=== PATIENT | female | born 1990 | race Two or more races ===

== ENCOUNTER 2018-01-04 23:20 | Emergency (ER) | payer MEDICAID, OTHER ==
[~2018-01-04] VITALS: Ht 167.6 cm; Wt 79.4 kg
[2018-01-05 00:37] VITALS: BP 114/52
[2018-01-05] MEDS ORDERED: DEXAMETHASONE SOD PHOS 10MG/1ML VIAL INJ IM ONE (01:15)
[2018-01-05] MEDS ORDERED: cefTRIAXone SOD 1,000 MG VL IM ONE (01:15)
== END 2018-01-05 01:40 | disposition home or self-care (01) ==
LOC: ER 23:20
DX: J02.9 Acute pharyngitis, unspecified (principal); H66.93 Otitis media, unspecified, bilateral; Z88.8 Allergy status to other drugs, medicaments and biological substances
CPT/HCPCS: 96372; 99284; J0696; J1100

== ENCOUNTER 2018-03-01 10:23 | Inpatient (IN) | payer MEDICAID ==
[~2018-03-01] VITALS: Ht 165.1 cm; Wt 87.9 kg
[2018-03-01] MEDS ORDERED: SODIUM CHLORIDE 0.9% 1,000 ML IVB ONE (11:05)
[2018-03-01] MEDS ORDERED: KETOROLAC TROMETH 30 MG/ML 1ML VIAL IV ONE (11:15)
[2018-03-01] MEDS ORDERED: ONDANSETRON HCL 4 MG/2 ML VIAL IV ONE (11:15)
[2018-03-01] MEDS ORDERED: HYDROmorphone HCL 2 MG/ML VL IV ONE (11:15)
[2018-03-01 11:26] LABS: Basophils # (auto) 0 uL; Basophils % (auto) 0.4 % (0.0-2.0); Eosinophils # (auto) 0.1 uL; Eosinophils % (auto) 0.8 % (0.0-7.0); Hematocrit 46.8 % (41.0-53.0); Hemoglobin 15.8 g/dL (13.5-17.5); Lymphocytes # (auto) 2.6 uL; Lymphocytes % (auto) 22.2 % (10.0-50.0); Mean Corpuscular Hemoglobin 29.5 pg (28.0-32.0); Mean Corpuscular Hgb Conc. 33.9 g/dL (32.0-36.0); Mean Corpuscular Volume 87.1 fL (80.0-100.0); Monocytes # (auto) 0.7 uL; Monocytes % (auto) 5.9 % (0.0-12.0); Neutrophils # (auto) 8.4 uL; Neutrophils % (auto) 70.7 % (37.0-80.0); Nucleated Red Blood Cells % 0.1 %; Platelet Count (auto) 317 10^3/uL (140-450); Red Blood Cells 5.37 10^6/uL (4.5-5.90); Red Cell Distribution Width 13.3 % (11.8-14.3); White Blood Cell 11.8 10^3/uL (4.4-10.8)
[2018-03-01 11:45] LABS: Albumin 4.3 g/dL (3.4-5.0); Calcium 9.5 mg/dL (8.5-10.1); Potassium 3.9 mmol/L (3.5-5.1)
[2018-03-01 11:48] LABS: BUN/Creatinine Ratio 10.5; Bilirubin, Total 0.6 mg/dL (0.2-1.0); Total Protein 8.2 g/dL (6.4-8.2)
[2018-03-01] MEDS ORDERED: NITROGLYCERIN 0.4 MG SL TAB SL PRN (13:30)
[2018-03-01] MEDS ORDERED: cefTRIAXone 1GM/50ML D5W 50 ML IV ONE (13:30)
[2018-03-01] MEDS ORDERED: ONDANSETRON HCL 4 MG/2 ML VIAL IV PRN (13:30)
[2018-03-01] MEDS ORDERED: TEMAZEPAM 15 MG CAP PO PRN (13:30)
[2018-03-01] MEDS ORDERED: ACETAMINOPHEN 500 MG TAB PO PRN (13:30)
[2018-03-01] MEDS ORDERED: DEXTROSE (50%) 50ML SYRG IV PRN (13:30)
[2018-03-01] MEDS ORDERED: LORazepam 0.5 MG TAB PO PRN (13:30)
[2018-03-01] MEDS ORDERED: traMADol HCL 50 MG TAB PO PRN (13:30)
[2018-03-01] MEDS: SODIUM CHLORIDE 0.9% 1,000 ML IV SCH ×2 (13:59→23:30)
[2018-03-01 16:00] VITALS: BP 115/74
[2018-03-01] MEDS: ACCU-CHEK COMFORT CURVE STRIP VI SCH ×2 (17:41→23:49)
[2018-03-01 20:00] VITALS: BP 118/72
[2018-03-01] MEDS: KETOROLAC TROMETH 30 MG/ML 1ML VIAL IV PRN (23:48)
[2018-03-02 05:00] VITALS: BP 119/67
[2018-03-02] MEDS: ACCU-CHEK COMFORT CURVE STRIP VI SCH (05:38)
[2018-03-02 08:21] LABS: Urine Bacteria NONE SEEN /hpf (None Seen); Urine Blood Negative /uL (Negative); Urine Mucus FEW (None Seen); Urine Specific Gravity 1.017 (1.001-1.035); Urine WBC 1 /hpf (0 - 3)
[2018-03-02 09:00] VITALS: BP 127/69
[2018-03-02] MEDS: cefTRIAXone 1GM/50ML D5W 50 ML IV SCH (09:30)
[2018-03-02] MEDS: PANTOPRAZOLE 40 MG TAB PO SCH (09:30)
[2018-03-02] MEDS: SODIUM CHLORIDE 0.9% 1,000 ML IV SCH ×2 (09:30→20:31)
[2018-03-02 13:00] VITALS: BP 119/78
[2018-03-02 17:11] VITALS: BP 124/64
[2018-03-02 22:00] VITALS: BP 125/79
[2018-03-03 04:30] VITALS: BP 135/86
[2018-03-03] MEDS: KETOROLAC TROMETH 30 MG/ML 1ML VIAL IV PRN ×2 (04:38→23:07)
[2018-03-03] MEDS: SODIUM CHLORIDE 0.9% 1,000 ML IV SCH ×2 (04:39→15:21)
[2018-03-03 06:06] LABS: Basophils # (auto) 0 uL; Basophils % (auto) 0.6 % (0.0-2.0); Eosinophils # (auto) 0.2 uL; Eosinophils % (auto) 2.1 % (0.0-7.0); Hematocrit 42.5 % (41.0-53.0); Hemoglobin 14.5 g/dL (13.5-17.5); Lymphocytes % (auto) 52.6 % (10.0-50.0); Mean Corpuscular Hemoglobin 30.1 pg (28.0-32.0); Mean Corpuscular Volume 88.4 fL (80.0-100.0); Monocytes # (auto) 0.5 uL; Monocytes % (auto) 6.2 % (0.0-12.0); Neutrophils % (auto) 38.5 % (37.0-80.0); Nucleated Red Blood Cells % 0.1 %; Platelet Count (auto) 264 10^3/uL (140-450); Red Blood Cells 4.81 10^6/uL (4.5-5.90); Red Cell Distribution Width 13.1 % (11.8-14.3); White Blood Cell 7.7 10^3/uL (4.4-10.8)
[2018-03-03 06:33] LABS: Potassium 3.7 mmol/L (3.5-5.1)
[2018-03-03 06:41] LABS: BUN/Creatinine Ratio 13.5; Calcium 8.6 mg/dL (8.5-10.1)
[2018-03-03 08:01] VITALS: BP 132/85
[2018-03-03] MEDS: PANTOPRAZOLE 40 MG TAB PO SCH (09:05)
[2018-03-03] MEDS: cefTRIAXone 1GM/50ML D5W 50 ML IV SCH (09:05)
[2018-03-03 13:33] VITALS: BP 126/89
[2018-03-03 16:16] VITALS: BP 119/69
[2018-03-03] MEDS ORDERED: DEXAMETHASONE SOD PHOS 4 MG/1ML SDV INJ IV ONE (19:00)
[2018-03-03] MEDS ORDERED: diphenhdrAMINE HCL 25 MG CAP PO ONE (19:00)
[2018-03-03 22:00] VITALS: BP 119/84
[2018-03-04 05:00] VITALS: BP 121/75
[2018-03-04] MEDS: SODIUM CHLORIDE 0.9% 1,000 ML IV SCH ×2 (05:59→11:30)
[2018-03-04 09:00] VITALS: BP 126/80
[2018-03-04] MEDS: PANTOPRAZOLE 40 MG TAB PO SCH (10:35)
[2018-03-04] MEDS: cefTRIAXone 1GM/50ML D5W 50 ML IV SCH (10:35)
[2018-03-04 11:57] VITALS: BP 126/80
== END 2018-03-04 18:59 | disposition home or self-care (01) | DRG 463 ==
LOC: EDSEX 10:24 → ER 10:24 → TELE 10:25 → TELE-WESTW 15:03
PROVIDERS: ADMIT Internal Medicine; ATTEND Internal Medicine
DX: N13.6 Pyonephrosis (principal); E66.3 Overweight; I10 Essential (primary) hypertension; R73.9 Hyperglycemia, unspecified; J45.909 Unspecified asthma, uncomplicated; Z83.3 Family history of diabetes mellitus; Z87.442 Personal history of urinary calculi; Z90.49 Acquired absence of other specified parts of digestive tract; Z88.8 Allergy status to other drugs, medicaments and biological substances; Z91.040 Latex allergy status; Z84.89 Family history of other specified conditions; Z68.32 Body mass index [BMI] 32.0-32.9, adult
CPT/HCPCS: 36415; 71045; 74176; 80048; 80053; 81001; 82962; 83036; 83690; 85025; 87086; 94761; 96361; 96365; 96375; 96376; G0378; J0696; J1885; J2405

== ENCOUNTER 2018-03-08 17:40 | Emergency (ER) | payer MEDICAID ==
[~2018-03-08] VITALS: Ht 165.1 cm; Wt 79.4 kg
[2018-03-08 18:17] LABS: Urine Bacteria NONE SEEN /hpf (None Seen); Urine Blood Negative /uL (Negative); Urine Specific Gravity 1.001 (1.001-1.035); Urine WBC <1 /hpf (0 - 3)
[2018-03-08 18:36] LABS: Basophils # (auto) 0.1 uL; Basophils % (auto) 1.4 % (0.0-2.0); Eosinophils # (auto) 0.2 uL; Eosinophils % (auto) 3.2 % (0.0-7.0); Hemoglobin 16.3 g/dL (13.5-17.5); Lymphocytes # (auto) 2.9 uL; Lymphocytes % (auto) 42.9 % (10.0-50.0); Mean Corpuscular Hemoglobin 30.1 pg (28.0-32.0); Mean Corpuscular Hgb Conc. 33.9 g/dL (32.0-36.0); Mean Corpuscular Volume 88.6 fL (80.0-100.0); Monocytes # (auto) 0.7 uL; Monocytes % (auto) 9.9 % (0.0-12.0); Neutrophils # (auto) 2.9 uL; Neutrophils % (auto) 42.6 % (37.0-80.0); Platelet Count (auto) 335 10^3/uL (140-450); Red Blood Cells 5.42 10^6/uL (4.5-5.90); Red Cell Distribution Width 13.2 % (11.8-14.3); White Blood Cell 6.7 10^3/uL (4.4-10.8)
[2018-03-08 18:55] LABS: Albumin 4.3 g/dL (3.4-5.0); BUN/Creatinine Ratio 15.6; Calcium 9.8 mg/dL (8.5-10.1); Potassium 3.9 mmol/L (3.5-5.1)
[2018-03-08 18:57] LABS: Bilirubin, Total 0.2 mg/dL (0.2-1.0); Total Protein 8.3 g/dL (6.4-8.2)
[2018-03-08] MEDS ORDERED: SODIUM CHLORIDE 0.9% 1,000 ML IV ONE (19:57)
[2018-03-08 23:36] LABS: Urine Bacteria NONE SEEN /hpf (None Seen); Urine Blood Negative /uL (Negative); Urine Specific Gravity 1.009 (1.001-1.035); Urine WBC <1 /hpf (0 - 3)
[2018-03-09 00:02] LABS: Alcohol, Urine < 3.0 mg/dL (0-5); Amphetamine Screen, Urine NEGATIVE (NEGATIVE); Barbiturate Scree,Urine NEGATIVE (NEGATIVE); Benzodiazephine Screen, Urine NEGATIVE (NEGATIVE); Cannabinoid Screen, Urine NEGATIVE (NEGATIVE); Cocaine Screen, Urine NEGATIVE (NEGATIVE); Opiate Scree,Urine NEGATIVE (NEGATIVE); Phencyclidine Screen, Urine NEGATIVE (NEGATIVE)
[2018-03-09] MEDS ORDERED: HYDROmorphone HCL 2 MG/ML VL IV ONE (00:15)
[2018-03-09] MEDS ORDERED: ONDANSETRON HCL 4 MG/2 ML VIAL IV ONE (00:15)
[2018-03-09 02:28] VITALS: BP 129/77
== END 2018-03-09 03:07 | disposition home or self-care (01) ==
LOC: ER 17:51
DX: N13.9 Obstructive and reflux uropathy, unspecified (principal); N39.0 Urinary tract infection, site not specified; Z88.5 Allergy status to narcotic agent; Z88.8 Allergy status to other drugs, medicaments and biological substances; Z91.040 Latex allergy status; Z91.018 Allergy to other foods; Z90.49 Acquired absence of other specified parts of digestive tract; Z87.442 Personal history of urinary calculi
CPT/HCPCS: 36415; 74176; 80053; 80307; 81001; 83690; 85025; 96374; 96375; 99285; J1170; J2405

== ENCOUNTER 2018-06-08 20:46 | Emergency (ER) | payer MEDICAID ==
[2018-06-08 21:56] VITALS: BP 140/75
[2018-06-08 23:20] LABS: Basophils # (auto) 0 uL; Basophils % (auto) 0.2 % (0.0-2.0); Eosinophils # (auto) 0.3 uL; Eosinophils % (auto) 3.3 % (0.0-7.0); Hematocrit 46.3 % (41.0-53.0); Hemoglobin 16.1 g/dL (13.5-17.5); Lymphocytes # (auto) 4.2 uL; Lymphocytes % (auto) 53.8 % (10.0-50.0); Mean Corpuscular Hemoglobin 30.3 pg (28.0-32.0); Mean Corpuscular Hgb Conc. 34.9 g/dL (32.0-36.0); Mean Corpuscular Volume 86.8 fL (80.0-100.0); Monocytes # (auto) 0.6 uL; Monocytes % (auto) 7.7 % (0.0-12.0); Neutrophils # (auto) 2.8 uL; Nucleated Red Blood Cells % 0.1 %; Platelet Count (auto) 286 10^3/uL (140-450); Red Blood Cells 5.33 10^6/uL (4.5-5.90); Red Cell Distribution Width 13.7 % (11.8-14.3); White Blood Cell 7.9 10^3/uL (4.4-10.8)
[2018-06-08 23:36] LABS: Potassium 3.7 mmol/L (3.5-5.1)
[2018-06-08 23:41] LABS: Albumin 4.2 g/dL (3.4-5.0); BUN/Creatinine Ratio 13.3
[2018-06-08 23:46] LABS: Bilirubin, Total 0.3 mg/dL (0.2-1.0)
== END 2018-06-09 04:57 | disposition home or self-care (01) ==
LOC: ER 20:46
DX: Z20.811 Contact with and (suspected) exposure to meningococcus (principal); R51 Headache; Z90.49 Acquired absence of other specified parts of digestive tract; Z88.6 Allergy status to analgesic agent; Z91.040 Latex allergy status
CPT/HCPCS: 36415; 70450; 80053; 85025; 87804